=== PATIENT | female | born 1960 | race African-American/Black ===

== ENCOUNTER 2016-12-11 16:55 | Inpatient (IN) | payer MEDICARE, OTHER ==
--- NOTE | ~2016-12-11 | HP ---
History And Physical [id number] [place]. [address] NAME: KENISHA HOOKS : 64 STATUS : ADM IN [facility]#: [id number] AGE: 56 ADM/REG DATE : 12/11/16 MR#: [id number] REPORT SERV DATE: 12/12/16 DICTATED BY: FREDRICK JO DATE: 12/11/16 REPORT STATUS : Draft TRANSCRIBED BY: MODL DATE: 12/11/16 DATE OF ADMISSION: 12/11/2016 CHIEF COMPLAINT: Shortness of breath. HISTORY OF PRESENT ILLNESS: The patient is a 56-year-old female with past medical history of schizoaffective disorder, bipolar disease, noncompliant diabetic, hypertension, who presents after having progressive shortness of breath. Initially, her complaint was for hand pain. She uses gloves to decrease contact for passing germs, but complains mainly at this time chest discomfort feeling like she has congestive changes and was noted hypoxia at arrival. Additionally had fever. The patient reports that symptoms have been intermittent, worsened with activity, mild to moderate with kind of dull-type pain without radiation. No nausea, vomiting. Does have chills, fever. Worsened with deep breathing, relieved by rest. Symptoms are still currently present, but slightly improving. REVIEW OF SYSTEMS: CONSTITUTIONAL: Noted for fever, mild weakness. EYES: No eye pain or visual changes. ENT: No sore throat or congestion. NEURO: No headache or confusion. SKIN: No rashes or bruising. Does have dry skin. RESPIRATORY: Positive shortness of breath with cough and wheezing. CV: Mild pleuritic discomfort, but no palpitations or cardiac-type chest pain described. GI: No nausea or vomiting. : No dysuria, hematuria. MUSCULOSKELETAL: No myalgias or arthralgias currently. ENDO: No fatigue. Does have polyuria. Elevated blood sugar. HEME: No bleeding or bruising. IMMUNOLOGIC: No rhinorrhea. PSYCH: No anxiety or confusion. PAST MEDICAL HISTORY: Schizoaffective disorder, uncontrolled diabetes type 2, septic shock in 2011 requiring pressors with JAYDEN secondary to Radha resistant to fluconazole, an MRSA abscess in right leg, nephrolithiasis, chronic elevation of alkaline phosphatase and LFTs, sarcoid with liver issues related to sarcoidosis, not on steroids. SURGICAL HISTORY: Appendectomy, hysterectomy, and I and D. SOCIAL HISTORY: Prior smoker. No alcohol. No illicits. Previously in . ALLERGIES: QUESTIONABLE HEPARIN AND INSULIN PRODUCTS, BUT THE PATIENT IS WILLING TO TRY INSULIN PRODUCTS AT THIS TIME. FAMILY HISTORY: Diabetes, coronary disease. EKG: Sinus tachycardia, rate 124, QTc 445. History And Physical [address] [place]. [address] NAME: KENISHA HOOKS : 64 STATUS : ADM IN [facility]#: [id number] AGE: 56 ADM/REG DATE : 12/11/16 MR#: [id number] REPORT SERV DATE: 12/12/16 DICTATED BY: FREDRICK JO DATE: 12/11/16 REPORT STATUS : Draft TRANSCRIBED BY: CLOTILDE DATE: 12/11/16 HOME MEDICATIONS: Tylenol, ammonium lactate, Lupis aspirin, Goody's powder, Glucotrol, and loratadine. PHYSICAL EXAMINATION: VITAL SIGNS: Blood pressure 153/93, temperature 99.5 reported as high as 100.2 at home, pulse 125 down to 113, respirations 16 to 18, O2 94%. GENERAL: No acute distress. Calm. HEAD: Normocephalic, atraumatic. EYES: No scleral icterus. ENT: Dry mucous membranes. Tongue midline. RESPIRATORY: Does have mild wheeze in lower right lung chávez with mild congestion and rhonchi. Equal chest expansion. CV: Tachycardic. No rubs or gallops. No pedal edema. GI: Soft, nontender, nondistended. Bowel sounds positive. MUSCULOSKELETAL: Moves all extremities x4. SKIN: Warm and dry. LYMPH: No supraclavicular or cervical lymphadenopathy. HEME: No bleeding or bruising. NEURO: Alert and oriented. Moves all extremities x4. PSYCH: Appropriate mood and affect. LABORATORY DATA: ABG; pH 7.39, pCO2 of 38, O2 was initially 51, bicarb 22.3, lactate level 1.4. BNP less than 2. Sodium 129 corrected to 133 to 136 with glucose of 381, potassium 5.0, chloride 90, BUN and creatinine 31 and 1, troponin negative, bicarb 25. Flu screen negative. WBC count 17.9, H and H 12.3 and 36.3, platelets 213, INR 1.0. Chest PA and lateral, mild increased opacity in right lower lobe and middle lobe from most recent chest x ray done on 12/09/2016, official report pending. ASSESSMENT: 1. Possible right middle and lower lobe pneumonia with hypoxia present on arrival, CURB-65 of 1. 2. Systemic inflammatory response syndrome, possible sepsis. 3. Bipolar schizoaffective disease. 4. Diabetes type 2. 5. Pseudohyponatremia. 6. Abnormal liver function test with history of sarcoid. PLAN: 1. Possible right middle lobe and lower lobe pneumonia with hypoxia, CURB-65 of 1. Given Rocephin and azithromycin. Does have tachycardia. Mild hypoxia also noted on ABG, improving with O2, antibiotics, and breathing treatments. Continue to monitor on telemetry and watch for clinical response. 2. SIRS, possible sepsis. IV antibiotics, IV fluids. Lactate within normal limits at this time. Cultures pending. 3. Bipolar schizoaffective disease, stable at this time. 4. Diabetes type 2. Willing to retrial Levemir at this time, but will need diabetic History And Physical [address] [address] NAME: KENISHA HOOKS : 64 STATUS : ADM IN [facility]#: [id number] AGE: 56 ADM/REG DATE : 12/11/16 MR#: [id number] REPORT SERV DATE: 12/12/16 DICTATED BY: FREDRICK OJ DATE: 12/11/16 REPORT STATUS : Draft TRANSCRIBED BY: MODJennifer DATE: 12/11/16 education. This patient has history of noncompliance. May have alternative medications rather than p.o., as the patient has had history of very elevated blood sugars. 5. Hyponatremia corrects to 133 to 136 glucose. We will give normal saline in the SIRS protocol and pneumonia for early goal-directed therapy. We will monitor a.m. sodium. 6. Abnormal liver function tests on prior imaging noted with sarcoid disease in history. We will recheck and monitor. All questions answered with the patient and family at bedside. Anticipate greater than two midnight inpatient stay. DDN/MODL Fredrick Jo MD / [id number] CC: Ly Hdz M.D.
--- NOTE | ~2016-12-11 | DS ---
Discharge Summary [id number] [place]. [address] NAME: KENISHA HOOKS : 64 STATUS : DIS IN PAT#: [id number] AGE: 56 ADM/REG DATE : 12/11/16 MR#: [id number] REPORT SERV DATE: 12/17/16 DICTATED BY: YVROSE WILLIAM DATE: 12/16/16 REPORT STATUS : Draft TRANSCRIBED BY: MODL DATE: 12/16/16 ADMISSION DATE: 12/11/2016 DISCHARGE DATE: 12/16/2016 CONDITION ON DISCHARGE: Stable. DISPOSITION: Discharge to home. ADVICE ON DISCHARGE: To follow up with PCP in the next one to two weeks regarding the resolution of right lower lobe pneumonia and all other medical issues and follow up with psychiatrist at the [facility] which the sister promises that she will take her for severe schizoaffective disorder and tardive dyskinesia and dyskinetic movements. The patient also has uncontrolled diabetes mellitus with a hemoglobin A1c of almost 15. The patient has received diabetic teaching and is being sent home on Lantus insulin with a prescription for that and also glipizide which she already has. The patient has to follow up with PCP regarding this. DIAGNOSES ON DISCHARGE: 1. Right lower lobe pneumonia which has completely resolved-the patient will finish her course of antibiotics in two days. As the patient states that she cannot take any other antibiotic like Levaquin, I put her on doxycycline 100 mg p.o. b.i.d. for two days. 2. Shortness of breath, has resolved. 3. Bipolar schizoaffective disorder for which the patient is noncompliant with medications and is on no medications right now. The patient needs to follow up with the [facility] psychiatrist for this and sister promises that she will take her there as an outpatient for outpatient treatment of this. 4. Uncontrolled diabetes type 2 with A1c of almost 15. Again, patient is noncompliant with diet. The patient has already received diabetic teaching and has already been given a prescription for Lantus which I will describe below. 5. Pseudohyponatremia which has resolved. 6. Abnormal liver function tests with a history of sarcoid which is stable. 7. Dyskinetic movements. 8. History of tardive dyskinesia. BRIEF HOSPITAL COURSE: The patient is a 56-year-old female patient who was admitted with shortness of breath and other symptoms and signs as described in history and physical exam. Essentially, the patient was admitted with a questionable right lower lobe pneumonia. The patient was started on IV antibiotics and given supplemental oxygen and breathing treatments q.4 hours while awake. With symptomatic and supportive treatment and antibiotics, the patient's condition improved. On the day of discharge, the patient is stable and breathing better and not requiring any supplemental oxygen. Lungs are clear. Leukocytosis has resolved. However, patient does have multiple issues including problems in her toes and requesting a Discharge Summary [address] [place]. [address] NAME: KENISHA HOOKS : 64 STATUS : DIS IN PAT#: [id number] AGE: 56 ADM/REG DATE : 12/11/16 MR#: [id number] REPORT SERV DATE: 12/17/16 DICTATED BY: YVROSE WILLIAM DATE: 12/16/16 REPORT STATUS : Draft TRANSCRIBED BY: CLOTILDE DATE: 12/16/16 podiatry appointment for someone to cut her toenails. The patient also has fungal infection of the fingernails from chronic use of gloves and chronically keeping her hands wet and for this, however, the patient cannot take any terbinafine because of the elevation in LFTs. However, she does need an appointment with security technician which sister states that she will take her as an outpatient. The patient also has uncontrolled diabetes mellitus and she was put on sliding scale insulin here and put on a strict diet and with this her blood glucose levels did really well. After patient improved, she is being sent home in stable condition and the most recent labs that I have on this patient include the following: Her CBC came back with WBC count of 9.5, hemoglobin 9.7, hematocrit 28.9, platelet count of 271. The patient probably has anemia of chronic disease and chronic malnutrition. Her electrolyte profile shows sodium 140, potassium 4.4, BUN 15, creatinine of 1.1. We did blood cultures on her that came back with no growth at four days. Her urine culture came back with approximately 100,000 colony count per mL of Radha. The patient also had a troponin-I that was negative. The patient was also checked for strep pneumo antigen that was negative and Legionella antigen that was negative. Lactate level was 0.9 that was normal. Chest x-ray portable that was done on 12/12 showed questionable right lower lobe pneumonia as mentioned above. The one abnormal lab that she received that can be really changed at this time is her hemoglobin A1c which came back at 15.1. This was communicated to the patient and I really stressed compliance with diet and compliance with medications to the patient and I am not sure if she has a whole lot of insight to her illness at this time. Sister was there and she states that she will try her best to do what she can. DISCHARGE MEDICATIONS: The patient is being sent home today on the following medications: 1. The new medication is doxycycline 100 mg p.o. b.i.d. just for two more days that the patient is being given so she can finish her course of antibiotics. 2. Aspirin 500 mg once a day. 3. Tylenol 500 mg once a day. 4. Glipizide 10 mg p.o. b.i.d. after eating. 5. Claritin 10 mg p.o. daily. 6. Goody's Powder on an as-needed basis. 7. Ammonium lactate lotion or Lac-Hydrin apply daily. 8. Doxycycline 100 mg p.o. b.i.d. for two more days as mentioned above. 9. Lantus insulin 15 units subcutaneously once a day, and I have given her a whole month supply on this Lantus insulin. The patient should not require any additional insulin for blood glucose levels that are higher in between; however, if the patient does require sliding scale insulin she could get a prescription for this from her PCP that she follows up with within the next few weeks. 10.I had a concern for high doses of aspirin that the patient takes too but the patient Discharge Summary [id number] [facility] [place]. [address] NAME: KENISHA HOOKS : 64 STATUS : DIS IN PAT#: [id number] AGE: 56 ADM/REG DATE : 12/11/16 MR#: [id number] REPORT SERV DATE: 12/17/16 DICTATED BY: YVROSE WILLIAM DATE: 12/16/16 REPORT STATUS : Draft TRANSCRIBED BY: MODJennifer DATE: 12/16/16 promises that this is the only thing that helps her and she wants to continue this. She understands the risks of bleed at this time. I have spent about 40 minutes in coordinating discharge care of this patient including face- to-face encounter and summarizing this discharge. RADHA/CLOTILDE Yvrose William M.D. / [id number] CC: Yvrose William M.D.
[2016-12-11 16:48] LABS: INFLUENZA A SCREEN NEGATIVE (NEGATIVE); INFLUENZA B SCREEN NEGATIVE (NEGATIVE)
[~2016-12-11 16:55] MED LIST: *DENIES; *UNABLE3; ACET500CAP PO; ALKA SELTZER PLUS PO; ASABAYER PO; AUG875 PO; BC POWDER PO; FLUCON150 PO; GARAOPHOIN OPH; GLUCOPHAGE PO; GLUCOPHAGE1000 MG PO; GLUCOTRO10 PO; GOODY'S EX-STR1 EAC1 PO; GOODYS PM1 POW PO; JANUVIA100 MG PO; LEVAQUIN5T PO; LEVEMIR SC; NEUR400 PO; NOVOLOG SC; OXYCOD PO; PENICILLN VK500 MG PO; PRIN5 PO; RISP2 PO; SEROQUEL400 MG PO; TYLENOL PO; ULTRAM50 PO
[2016-12-11 17:05] LABS: BASOPHILS 0.3 %; BASOPHILS ABSOLUTE 0.05 10/3/uL (0.0-0.16); EOSINOPHILS 0 %; HEMATOCRIT 36.3 % (36.0-48.0); HEMOGLOBIN 12.3 g/dL (12.0-16.0); IMMATURE GRANULOCYTES 0.9 %; IMMATURE GRANULOCYTES ABSOLUTE 0.16 10/3/uL (0.0-0.11); LYMPHOCYTES 9.9 %; LYMPHOCYTES ABSOLUTE 1.77 10/3/uL (0.67-4.30); MEAN CORPUS HGB CONC 33.9 g/dL (32.0-36.0); MEAN CORPUSCULAR HEMOGLOB 29.5 pg (26.0-34.0); MEAN CORPUSCULAR VOLUME 87.1 fL (80-100); MEAN PLATELET VOLUME 11.5 fL (9.2-13.0); MONOCYTES 9.3 %; MONOCYTES ABSOLUTE 1.66 10/3/uL (0.21-1.20); NEUTROPHILS 79.6 %; NEUTROPHILS ABSOLUTE 14.23 10/3/uL (2.02-8.40); NUCLEATED RED BLOOD CELLS 0.1 /100WBC (0-0); PLATELET COUNT 213 10/3/uL (150-400); RBC DISTRIBUTION WIDTH 12.8 % (12.0-16.0); RED CELL COUNT 4.17 10/6/uL (4.0-5.6)
[2016-12-11 17:06] LABS: ER CBC TAT 0 Hrs 10 Mins; MANUAL DIFF NO %; WHITE BLOOD CELLS 17.9 10/3/uL (4.5-10.5)
[2016-12-11 17:18] LABS: PARTIAL THROMBO TIME 31.4 SEC (22.5-37.2); PROTIME (NOT ORD) 13.5 SEC (12.0-14.5)
[2016-12-11 17:20] LABS: BUN (BLOOD UREA NITROGEN) 31 MG/DL (6-23); CALCIUM, SERUM 9.8 MG/DL (8.5-10.4); CHEST PAIN PROFILE TAT 0 Hrs 24 Mins; CHLORIDE, SERUM 90 MMOL/L (96-112); CO2 (CARBON DIOXIDE) 25 MMOL/L (24-34); GFR AFRICAN AMERICAN 74 ML/MIN (>=60); GFR NON AFRICAN AMERICAN 64 ML/MIN (>=60); GLUCOSE, SERUM 381 MG/DL (60-99); SODIUM, SERUM 129 MMOL/L (135-148); TROPONIN I <0.02 NG/ML (<0.05)
[2016-12-11 18:29] LABS: LACTATE 1.4 MMOL/L (0.3-2.4)
[2016-12-11] MEDS ORDERED: ACET500CAP PO (19:35)
[2016-12-11] MEDS ORDERED: BAYER500 MG PO (19:35)
[2016-12-11] MEDS ORDERED: GLUCOTRO10 PO (19:35)
[2016-12-11] MEDS ORDERED: GOODY'S EX-STR1 EAC1 PO (19:36)
[2016-12-11] MEDS ORDERED: CLARIT10 PO (19:36)
[2016-12-11] MEDS ORDERED: LAC-HYDRIN TOP (19:36)
[2016-12-11 19:50] LABS: ALLENS TEST Pos; BE (BASE EXCESS) -2.3 MEQ/L (0 +/- 2.5); CARBOXYHEMOGLOBIN 1.8 % (0-3); HCO3 (ACTUAL BICARBONATE) 22.3 MEQ/L (23-27); HEMOBLOGIN CONTENT 12.8 G/DL (12-16); INSTRUMENT SERIAL # 8087; METHEMOGLOBIN 0.3 % (0-3); O2 CONTENT 15.1 VOL% (18-24); OPERATOR ID 14335; PCO2 (CO2 TENSION) 38 MMHG (35-45); PO2 (O2 TENSION) 51 MMHG (79-93); SAMPLE Arterial; pH 7.39 (7.37-7.43)
[2016-12-12 07:37] LABS: BASOPHILS 0.3 %; BASOPHILS ABSOLUTE 0.05 10/3/uL (0.0-0.16); EOSINOPHILS 0.1 %; EOSINOPHILS ABSOLUTE 0.01 10/3/uL (0.0-0.53); HEMATOCRIT 33.5 % (36.0-48.0); HEMOGLOBIN 11.3 g/dL (12.0-16.0); IMMATURE GRANULOCYTES 0.7 %; LYMPHOCYTES 12.1 %; LYMPHOCYTES ABSOLUTE 1.84 10/3/uL (0.67-4.30); MEAN CORPUS HGB CONC 33.7 g/dL (32.0-36.0); MEAN CORPUSCULAR HEMOGLOB 29.3 pg (26.0-34.0); MEAN CORPUSCULAR VOLUME 86.8 fL (80-100); MEAN PLATELET VOLUME 11.5 fL (9.2-13.0); MONOCYTES 11.1 %; MONOCYTES ABSOLUTE 1.69 10/3/uL (0.21-1.20); NEUTROPHILS 75.7 %; NEUTROPHILS ABSOLUTE 11.54 10/3/uL (2.02-8.40); PLATELET COUNT 211 10/3/uL (150-400); RBC DISTRIBUTION WIDTH 12.9 % (12.0-16.0); RED CELL COUNT 3.86 10/6/uL (4.0-5.6); WHITE BLOOD CELLS 15.2 10/3/uL (4.5-10.5)
[2016-12-12 07:38] LABS: MANUAL DIFF NO %
[2016-12-12 07:54] LABS: CALCIUM, SERUM 8.9 MG/DL (8.5-10.4); CHLORIDE, SERUM 98 MMOL/L (96-112); CO2 (CARBON DIOXIDE) 22 MMOL/L (24-34); CREATININE 0.72 MG/DL (0.55-1.02); GFR AFRICAN AMERICAN 110 ML/MIN (>=60); GFR NON AFRICAN AMERICAN 95 ML/MIN (>=60); PHOSPHORUS, SERUM 2.3 MG/DL (2.5-4.5); POTASSIUM, SERUM 4.2 MMOL/L (3.5-5.3); SGOT(AST) 21 U/L (5-40); SGPT(ALT) 65 U/L (5-65); SODIUM, SERUM 133 MMOL/L (135-148); TOTAL BILIRUBIN 1.1 MG/DL (0-1.2); TOTAL PROTEIN 7.3 G/DL (6.0-8.5); TROPONIN I <0.02 NG/ML (<0.05); ULTRASENSITIVE TSH 0.744 MCIU/ML (0.358-3.740)
[2016-12-12 07:57] LABS: A/G RATIO 0.5 (0.7-1.9); ACETAMINOPHEN LEVEL (TYLENOL) < 2.0 MCG/ML (10.0-20.0); ALBUMIN 2.3 G/DL (3.5-5.0); ALKALINE PHOSPHATASE 593 U/L (45-117); BUN (BLOOD UREA NITROGEN) 23 MG/DL (6-23); GLUCOSE, SERUM 212 MG/DL (60-99); SALICYLATE < 1.7 MG/DL (-)
[2016-12-12 08:09] LABS: PROCALCITONIN 4.29 ng/mL (<0.5)
[2016-12-12 11:46] LABS: INTERNATIONAL NORMAL RATI 1.1 UNITS (-)
[2016-12-12 16:00] LABS: ASCORBIC ACID (UR NOT ORDER) NEG (NEG); BILIRUBIN, URINE NEGATIVE (NEG); KETONE, URINE 20 MG/DL (NEG); LEUKOCYTE ESTERASE(NOT OR NEG (NEG); WBC (NOT ORDERED) (RFLEX) 60 (0-5)
[2016-12-13 06:05] LABS: BUN (BLOOD UREA NITROGEN) 21 MG/DL (6-23); CALCIUM, SERUM 8.6 MG/DL (8.5-10.4); CHLORIDE, SERUM 98 MMOL/L (96-112); CO2 (CARBON DIOXIDE) 25 MMOL/L (24-34); CREATININE 0.81 MG/DL (0.55-1.02); GFR AFRICAN AMERICAN 95 ML/MIN (>=60); GFR NON AFRICAN AMERICAN 82 ML/MIN (>=60); GLUCOSE, SERUM 168 MG/DL (60-99); POTASSIUM, SERUM 4.2 MMOL/L (3.5-5.3); SODIUM, SERUM 134 MMOL/L (135-148)
[2016-12-13 08:04] LABS: BASOPHILS 0.4 %; BASOPHILS ABSOLUTE 0.07 10/3/uL (0.0-0.16); EOSINOPHILS 0.4 %; EOSINOPHILS ABSOLUTE 0.06 10/3/uL (0.0-0.53); HEMATOCRIT 31.7 % (36.0-48.0); HEMOGLOBIN 10.6 g/dL (12.0-16.0); IMMATURE GRANULOCYTES 0.8 %; IMMATURE GRANULOCYTES ABSOLUTE 0.12 10/3/uL (0.0-0.11); LYMPHOCYTES 9.9 %; LYMPHOCYTES ABSOLUTE 1.57 10/3/uL (0.67-4.30); MANUAL DIFF NO %; MEAN CORPUS HGB CONC 33.4 g/dL (32.0-36.0); MEAN CORPUSCULAR HEMOGLOB 29.1 pg (26.0-34.0); MEAN CORPUSCULAR VOLUME 87.1 fL (80-100); MEAN PLATELET VOLUME 11.6 fL (9.2-13.0); MONOCYTES 14.6 %; MONOCYTES ABSOLUTE 2.31 10/3/uL (0.21-1.20); NEUTROPHILS 73.9 %; NEUTROPHILS ABSOLUTE 11.66 10/3/uL (2.02-8.40); PLATELET COUNT 220 10/3/uL (150-400); RBC DISTRIBUTION WIDTH 12.8 % (12.0-16.0); RED CELL COUNT 3.64 10/6/uL (4.0-5.6); WHITE BLOOD CELLS 15.8 10/3/uL (4.5-10.5)
[2016-12-14 05:27] LABS: BASOPHILS 0.2 %; BASOPHILS ABSOLUTE 0.03 10/3/uL (0.0-0.16); EOSINOPHILS ABSOLUTE 0.15 10/3/uL (0.0-0.53); HEMOGLOBIN 10.2 g/dL (12.0-16.0); IMMATURE GRANULOCYTES 0.9 %; IMMATURE GRANULOCYTES ABSOLUTE 0.13 10/3/uL (0.0-0.11); LYMPHOCYTES 11.5 %; LYMPHOCYTES ABSOLUTE 1.74 10/3/uL (0.67-4.30); MEAN CORPUSCULAR HEMOGLOB 29.1 pg (26.0-34.0); MEAN CORPUSCULAR VOLUME 85.7 fL (80-100); MEAN PLATELET VOLUME 11.4 fL (9.2-13.0); MONOCYTES 16.1 %; MONOCYTES ABSOLUTE 2.44 10/3/uL (0.21-1.20); NEUTROPHILS 70.3 %; NEUTROPHILS ABSOLUTE 10.69 10/3/uL (2.02-8.40); PLATELET COUNT 238 10/3/uL (150-400); RBC DISTRIBUTION WIDTH 13.1 % (12.0-16.0); WHITE BLOOD CELLS 15.2 10/3/uL (4.5-10.5)
[2016-12-14 05:30] LABS: BUN (BLOOD UREA NITROGEN) 15 MG/DL (6-23); CALCIUM, SERUM 8.8 MG/DL (8.5-10.4); CHLORIDE, SERUM 103 MMOL/L (96-112); CO2 (CARBON DIOXIDE) 27 MMOL/L (24-34); CREATININE 0.73 MG/DL (0.55-1.02); GFR AFRICAN AMERICAN 108 ML/MIN (>=60); GFR NON AFRICAN AMERICAN 93 ML/MIN (>=60); GLUCOSE, SERUM 80 MG/DL (60-99); POTASSIUM, SERUM 3.8 MMOL/L (3.5-5.3); SODIUM, SERUM 139 MMOL/L (135-148)
[2016-12-14 05:45] LABS: MANUAL DIFF NO %
[2016-12-15 05:14] LABS: BASOPHILS 0.3 %; BASOPHILS ABSOLUTE 0.04 10/3/uL (0.0-0.16); EOSINOPHILS 1.7 %; HEMATOCRIT 28.9 % (36.0-48.0); HEMOGLOBIN 9.8 g/dL (12.0-16.0); IMMATURE GRANULOCYTES 1.3 %; IMMATURE GRANULOCYTES ABSOLUTE 0.16 10/3/uL (0.0-0.11); LYMPHOCYTES 16.2 %; LYMPHOCYTES ABSOLUTE 1.95 10/3/uL (0.67-4.30); MANUAL DIFF NO %; MEAN CORPUS HGB CONC 33.9 g/dL (32.0-36.0); MEAN CORPUSCULAR HEMOGLOB 29.7 pg (26.0-34.0); MEAN CORPUSCULAR VOLUME 87.6 fL (80-100); MEAN PLATELET VOLUME 10.8 fL (9.2-13.0); MONOCYTES 14.5 %; MONOCYTES ABSOLUTE 1.75 10/3/uL (0.21-1.20); NEUTROPHILS ABSOLUTE 7.94 10/3/uL (2.02-8.40); PLATELET COUNT 229 10/3/uL (150-400); RBC DISTRIBUTION WIDTH 13.2 % (12.0-16.0)
[2016-12-15 05:26] LABS: BUN (BLOOD UREA NITROGEN) 14 MG/DL (6-23); CALCIUM, SERUM 8.6 MG/DL (8.5-10.4); CHLORIDE, SERUM 106 MMOL/L (96-112); CO2 (CARBON DIOXIDE) 25 MMOL/L (24-34); CREATININE 1.07 MG/DL (0.55-1.02); GFR AFRICAN AMERICAN 68 ML/MIN (>=60); GFR NON AFRICAN AMERICAN 59 ML/MIN (>=60); POTASSIUM, SERUM 3.7 MMOL/L (3.5-5.3); SODIUM, SERUM 140 MMOL/L (135-148)
[2016-12-15 05:27] LABS: GLUCOSE, SERUM 162 MG/DL (60-99)
[2016-12-16 06:32] LABS: BASOPHILS 0.4 %; BASOPHILS ABSOLUTE 0.04 10/3/uL (0.0-0.16); EOSINOPHILS ABSOLUTE 0.19 10/3/uL (0.0-0.53); HEMATOCRIT 28.9 % (36.0-48.0); HEMOGLOBIN 9.7 g/dL (12.0-16.0); IMMATURE GRANULOCYTES 3.5 %; IMMATURE GRANULOCYTES ABSOLUTE 0.33 10/3/uL (0.0-0.11); LYMPHOCYTES 19.3 %; LYMPHOCYTES ABSOLUTE 1.84 10/3/uL (0.67-4.30); MEAN CORPUS HGB CONC 33.6 g/dL (32.0-36.0); MEAN CORPUSCULAR HEMOGLOB 28.6 pg (26.0-34.0); MEAN CORPUSCULAR VOLUME 85.3 fL (80-100); MEAN PLATELET VOLUME 10.7 fL (9.2-13.0); MONOCYTES ABSOLUTE 1.71 10/3/uL (0.21-1.20); NEUTROPHILS 56.8 %; NEUTROPHILS ABSOLUTE 5.41 10/3/uL (2.02-8.40); PLATELET COUNT 271 10/3/uL (150-400); RBC DISTRIBUTION WIDTH 13.6 % (12.0-16.0); RED CELL COUNT 3.39 10/6/uL (4.0-5.6); WHITE BLOOD CELLS 9.5 10/3/uL (4.5-10.5)
[2016-12-16 06:33] LABS: BUN (BLOOD UREA NITROGEN) 15 MG/DL (6-23); CALCIUM, SERUM 8.6 MG/DL (8.5-10.4); CHLORIDE, SERUM 106 MMOL/L (96-112); CO2 (CARBON DIOXIDE) 25 MMOL/L (24-34); CREATININE 1.17 MG/DL (0.55-1.02); GFR AFRICAN AMERICAN 61 ML/MIN (>=60); GFR NON AFRICAN AMERICAN 53 ML/MIN (>=60); POTASSIUM, SERUM 4.4 MMOL/L (3.5-5.3); SODIUM, SERUM 140 MMOL/L (135-148)
[2016-12-16 06:34] LABS: GLUCOSE, SERUM 203 MG/DL (60-99)
[2016-12-16 06:35] LABS: MANUAL DIFF NO %
[2016-12-16] MEDS ORDERED: MONODOX100 MG PO (11:42)
[2016-12-16] MEDS ORDERED: LANTUS SC (11:43)
[2017-05-19] MEDS ORDERED: GLUCOTRO10 PO (21:59)
[2017-05-19] MEDS ORDERED: PRIN10 PO (22:07)
[2017-05-23] MEDS ORDERED: LEVEMIR SC (18:04)
[2017-05-23] MEDS ORDERED: AUG875 PO (18:05)
[2017-05-23] MEDS ORDERED: SEROQUEL1C PO (18:06)
[2017-05-23] MEDS ORDERED: PCET PO (18:06)
[2017-05-23] MEDS ORDERED: ATV.5 PO (18:10)
[2017-05-23] MEDS ORDERED: PRIN5 PO (18:10)
== END 2016-12-16 15:20 | disposition home or self-care (01) | DRG 871 ==
LOC: ER 16:55 → 4SO 22:42
PROVIDERS: Hospitalist; Nurse Practitioner; Student in an Organized Health Care Education/Training Program
DX: A41.9 Sepsis, unspecified organism (principal); J18.1 Lobar pneumonia, unspecified organism; J96.01 Acute respiratory failure with hypoxia; E87.1 Hypo-osmolality and hyponatremia; E11.65 Type 2 diabetes mellitus with hyperglycemia; B35.1 Tinea unguium; G24.01 Drug induced subacute dyskinesia; I10 Essential (primary) hypertension; D86.9 Sarcoidosis, unspecified; F25.0 Schizoaffective disorder, bipolar type; Z23 Encounter for immunization; Z87.891 Personal history of nicotine dependence; Z79.82 Long term (current) use of aspirin; Z79.84 Long term (current) use of oral hypoglycemic drugs; Z79.899 Other long term (current) drug therapy; Z86.14 Personal history of Methicillin resistant Staphylococcus aureus infection; Z87.442 Personal history of urinary calculi; Z91.19 Patient's noncompliance with other medical treatment and regimen; Z91.14 Patient's other noncompliance with medication regimen; Z91.11 Patient's noncompliance with dietary regimen; Z88.8 Allergy status to other drugs, medicaments and biological substances; Z91.041 Radiographic dye allergy status; E86.0 Dehydration
CPT/HCPCS: 36600; 71010; 71020; 80048; 80053; 81001; 82805; 82962; 83036; 83605; 83735; 83880; 84100; 84145; 84443; 84484; 85025; 85610; 85730; 87040; 87070; 87086; 87205; 87449; 87804; 90686; 90732; 93005; 94640; 96374; 96375; 99284; 99285; A9270-GY; G0008; G0009; G0480; J0456; J1652; J2405; J3370